=== PATIENT | male | born 1935 | race Native Hawaiian/Other Pacific Islander ===

== ENCOUNTER 2018-04-28 18:44 | Emergency (ER) | payer OTHER, MEDICARE ==
[~2018-04-28] VITALS: Ht 185.4 cm; Wt 88.5 kg
[2018-04-28 19:02] LABS: PLATELET COUNT 264 K/uL (142-355)
[2018-04-28 19:49] LABS: POTASSIUM 3.9 mmol/L (3.6-5.2)
[2018-04-28 20:45] VITALS: BP 141/76; TEMP 97.7
[2018-04-28] MEDS ORDERED: OMEPRAZOLE20 MG PO (23:13)
[2018-04-28] MEDS ORDERED: CO Q10200 MG PO (23:13)
[2018-04-28] MEDS ORDERED: MEMA10TA2 PO (23:13)
[2018-04-28] MEDS ORDERED: QUETIAPINE25 MG PO (23:14)
[2018-04-28] MEDS ORDERED: PRESERVISION AREDS PO (23:15)
[2018-04-28] MEDS ORDERED: DONE5TAB PO (23:15)
[2018-04-28] MEDS ORDERED: REMERON SOLTAB15 MG PO (23:16)
[2018-04-28] MEDS ORDERED: DOXA2TAB PO (23:16)
[2018-04-28] MEDS ORDERED: GERI-LANTA PO (23:17)
[2018-04-28] MEDS ORDERED: TYLENOL325 MG OR (23:18)
[2018-04-28] MEDS ORDERED: NITR0.4S2 SL (23:19)
[2018-05-12] MEDS ORDERED: ESCI10TA PO (10:27)
[2018-05-12] MEDS ORDERED: RISP0.25 PO (10:27)
[2018-05-12] MEDS ORDERED: CYAN10009 IM (10:27)
[2018-05-12] MEDS ORDERED: REMERON 15MG TAB PO (10:27)
[2018-05-12] MEDS ORDERED: LORA2INJ21 IM (10:27)
[2018-05-12] MEDS ORDERED: HALO5INJ3 IM (10:28)
== END 2018-04-28 20:53 | disposition other institution (70) ==
LOC: ED 18:44
DX: G30.9 Alzheimer's disease, unspecified (principal); F02.80 Dementia in other diseases classified elsewhere, unspecified severity, without behavioral disturbance, psychotic disturbance, mood disturbance, and anxiety; Z04.6 Encounter for general psychiatric examination, requested by authority
CPT/HCPCS: 36415; 80053; 81000; 85027; 93005; 99285